=== PATIENT | female | born 1970 | race Two or more races ===

== ENCOUNTER 2024-10-07 12:48 | Emergency (ER) | payer BC, SELFPAY ==
[2024-10-07 12:56] VITALS: BP 115/76
[2024-10-07 13:16] LABS: % Basophils 0.8 % (0-2); % Eosinophils 3.4 % (0-6); % Immature Granulocytes 0.3 % (0-0.5); % Lymphocytes 37.6 % (20.5-51.1); % Monocytes 5.4 % (1.7-9.3); % Neutrophils 52.5 % (42.2-75.2); Absolute Basophils 0.1 10^3/uL (0-0.2); Absolute Eosinophils 0.3 10^3/uL (0-0.7); Absolute Lymphocytes 2.8 10^3/uL (1.2-3.4); Absolute Monocytes 0.4 10^3/uL (0.1-0.6); Absolute Neutrophils 3.9 10^3/uL (1.4-6.5); Hematocrit 39.3 % (37.0-47.0); Hemoglobin 13.6 g/dL (12.0-16.0); Mean Corp Hgb Conc. 34.6 g/dL (33.0-37.0); Mean Corpuscular Hgb 30.6 pg (27.0-31.0); Mean Corpuscular Volume 88.3 fL (81.0-99.0); Mean Platelet Volume 9.3 fL (7.4-10.4); Nucleated Red Blood Cells % 0 %; Platelet Count 287 10^3/uL (130-400); Red Blood Cell Count 4.45 10^6/uL (4.20-5.40); White Blood Cell Count 7.4 10^3/uL (4.8-10.8)
[2024-10-07 13:24] LABS: ALT (SGPT) 20 U/L (0-35); AST (SGOT) 20 U/L (14-36); Albumin 4.4 g/dl (3.5-5.0); Alkaline Phosphatase 80 U/L (38-126); Blood Urea Nitrogen 9 mg/dl (7-17); Calcium 9.8 mg/dl (8.4-10.2); Carbon Dioxide 26 mmol/L (22-30); Chloride 107 mmol/L (98-107); Glucose 117 mg/dl (70-99); Lipase 154 U/L (23-300); Potassium 3.5 mmol/L (3.5-5.1); Sodium 140 mmol/L (135-145); Total Bilirubin 0.6 mg/dl (0.2-1.3); Total Protein 6.5 g/dl (6.3-8.2); eGFR > 60.00
--- NOTE | 2024-10-07 15:28 | ED.GENMED ---
History of Present Illness
General
Chief Complaint: Abdominal Pain
Source: patient
Exam Limitations: none
Time Seen by Provider: 10/07/24 15:18
History of Present Illness
History of Present Illness:
See MDM
Past History
Past History
ED Past Medical History: Hypothyroidism
ED Past Surgical History: Cholecystectomy and Gynecological
Social History
Tobacco: Non-smoker
Alcohol: None
Phy Exam
Physical Exam
Physical Exam:
See MDM
Course
Orders/Labs/Results
Orders:
Orders
10/07/24 13:02
Complete Blood Count/With Diff Urgent
Comprehensive Metabolic Panel Urgent
Lipase Urgent
10/07/24 15:26
CT Abd/pelvis W Iv Cont Urgent
Comment:
Reason For Exam: Vague generalized abd pain
0.9% Sodium Chloride 1000 ml [Nss] 1,000 ml IV BOLUS
Ketorolac [Toradol] 30 mg IV NOW STA
Abnormal Lab Results
10/07/24
13:02
Glucose 117 H mg/dl
(70-99)
10/07/24 13:02
10/07/24 13:02
Vital Signs
Initial and Last Documented VS:
Initial Vital Signs
Temp Pulse Resp BP Pulse Ox
98.0 F 98 18 115/76 98
10/07/24 12:56 10/07/24 12:56 10/07/24 12:56 10/07/24 12:56 10/07/24 12:56
Last Documented Vital Signs
Temp Pulse Resp BP Pulse Ox
98.0 F 74 16 112/82 100
10/07/24 12:56 10/07/24 15:38 10/07/24 16:12 10/07/24 15:38 10/07/24 15:38
MDM/Problems Addressed
Differential Diagnosis Includes:
HPI and MDM Narrative:
53-year-old female presenting for evaluation of generalized abdominal pain. It has been ongoing for the past 2 weeks. 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 She has been taking Tums and antacids assuming
it could be gastric related. Symptoms are worse when she eats. Due to the generalized pain after food intake, she has decreased her p.o. intake causing weight loss. She does have a history of celiac disease which was diagnosed recently about 5 or
6 years ago. At that time, patient states she had endoscopy. She states the endoscopy at that time was within normal limits. Blood work was done prior to my assessment. Blood work without clinically relevant abnormalities. Patient has mildly
elevated blood sugar but the rest of the blood work within normal limits. Given the persistent nature, will obtain CT
Physical exam
General: Well appearing and non-toxic
HEENT: protecting airway. Mildly dry mucous membranes
Neck: appears supple
CV: No evidence of cyanosis
Resp: No accessory muscle use
Abd: Non-distended. Generalized abdominal pain without focal tenderness or rebound
Extremities: No deformities
Neuro: alert
Psych: Normal affect
Skin: Intact
Problems Addressed including Acute and Chronic Conditions affecting care:
1. Postprandial abdominal pain
Acuity: acute
Prognosis: stable
Details: Given persistent symptoms, will obtain CT A/P
Updates
CT concerning for widespread constipation. Discussed stool softener and laxatives and follow-up with GI
Patient does acknowledge that she defecates approximately once every 2 weeks
Differential Diagnosis (but not limited to): Colitis, diverticulitis, gastritis, peptic ulcer disease
Testing considered: Urinalysis
Drug therapy (if applicable): OTC meds, please see d/c instruction regarding Rx drugs
Amount and/or Complexity of Data Reviewed
Clinical info obtained from: Patient
External data reviewed: N/A
Labs I independently reviewed (but not limited to): LFTs within normal limits
Radiology: The CT scan was personally and independently reviewed. In addition, official CT report reviewed.
Pulse Ox: not hypoxic
EKG independently reviewed: N/A
Developer Designer: N/A
Critical Care: N/A
Risk of Complication:
Social Determinants of health: Good social support
Discussed with other providers: N/A
Escalation of Care includes Admit/Obs: After being observed in the Emergency Department, pt stable for discharge.
Occasional wrong word or 'sound a like' substitutions may have occurred due to the inherent limitations of voice recognition software. Read the chart carefully and recognize, using context, where substitutions have occurred.
*Critical Care Note
Total Time (30-74mins, 75-104mins- exclusive of procedures): Not Applicable
ED Attending Note
-
Portions of this chart may have been created with voice recognition software.� Occasional wrong word or��sound alike� substitutions may have occurred due to the inherent limitations of voice recognition software.
Discharge Plan
Departure
Patient Disposition: Home (Routine Discharge)
Date of Disposition: 10/07/24
Time of Disposition: 16:36
Patient with high blood pressure during this ER visit?: No
Discharge Problem:
Constipation
Instructions: Constipation, Adult (DC)
Referrals:
Vaibhav Pugh DO [Family Provider] -
Activity Restrictions/Additional Instructions:
Please return for any worsening symptoms.
You may return at any time if you have further concerns.
Please follow up with your doctor at the first available appointment, preferably this week.
Please start taking daily stool softeners moving forward. Please take daily laxatives until symptoms resolve.
Thank you for choosing [facility].
Interventions
Interventions:
*Risk Screen - Suicide Last Done: 10/07/24 12:56
*General Assessment Last Done: 10/07/24 12:56
*Neglect/Abuse Screening Last Done: 10/07/24 12:56
*ED- Fall Risk Assessment Last Done: 10/07/24 12:56
*ED COVID-19 Vaccine History Last Done: 10/07/24 12:56
[facility]-Oqynsudvrs Assessment Last Done: 10/07/24 15:39
Discharge Date and Time
Print Language: CAPE [place]
[2024-10-07] MEDS: NSS 1000 IV (15:37)
[2024-10-07] MEDS: TORADOL 30 MG IV (15:37)
[2024-10-07 15:38] VITALS: BP 112/82
[2024-10-07 16:48] VITALS: BP 120/84
== END 2024-10-07 16:58 | disposition home or self-care (01) ==
LOC: EMR 12:48
PROVIDERS: Emergency Medicine; EMERGENCY PHYSICIAN Student in an Organized Health Care Education/Training Program; FAMILY PHYSICIAN Family Medicine
DX: K59.00 Constipation, unspecified (principal); E03.9 Hypothyroidism, unspecified; Z90.49 Acquired absence of other specified parts of digestive tract
CPT/HCPCS: 96374; 96361; 99284; 74177; 80053; 83690; 85025; Q9967

== ENCOUNTER 2025-04-30 06:18 | Day surgery (SDC) | payer BC, SELFPAY | END 2025-04-30 09:25 | disposition home or self-care (01) | LOC: GI 06:18 | PROVIDERS: ATTENDING PHYSICIAN Internal Medicine Gastroenterology | DX: K90.0 Celiac disease (principal); K44.9 Diaphragmatic hernia without obstruction or gangrene; K29.70 Gastritis, unspecified, without bleeding; K31.89 Other diseases of stomach and duodenum; K29.50 Unspecified chronic gastritis without bleeding | CPT/HCPCS: 43239; 88305; 88342 ==

== ENCOUNTER → 2025-04-30 13:27 | Outpatient (REF) | payer BC, SELFPAY ==
[2025-04-30 14:15] LABS: D-Dimer < 0.27 ug/mlFEU (0.00-0.50)
== END ==
LOC: RAD 13:27
PROVIDERS: ATTENDING PHYSICIAN Internal Medicine Critical Care Medicine; FAMILY PHYSICIAN Family Medicine
DX: R05.3 Chronic cough (principal); R06.09 Other forms of dyspnea
CPT/HCPCS: 36415; 71046; 85379